=== PATIENT | male | born 1950 | race Caucasian/White ===

== ENCOUNTER 2019-01-17 09:05 | Emergency (ER) | payer MEDICARE, OTHER ==
--- NOTE | 2019-01-17 09:53 | ED ---
Lower Extremity - HPI Summary HPI Summary: Patient is a 68-year-old male who presents emergency department for right foot pain. Patient states he chronically has mild pain noted to his right foot but 3 days ago he twisted his foot walking and has had worsening pain and bruising. Symptoms are mild in severity. Tylenol improves pain. Walking exacerbates pain. Symptoms are mild in severity. - History of Current Complaint Chief Complaint: EDExtremityLower Stated Complaint: RT FOOT INJ PER PT Time Seen by Provider: 01/17/19 09:37 Hx Obtained From: Patient Pain Intensity: 3 - Allergies/Home Medications Allergies/Adverse Reactions: Allergies Allergy/AdvReac Type Severity Reaction Status Date / Time No Known Allergies Allergy Verified 05/23/12 08:39 PMH/Surg Hx/FS Hx/Imm Hx Previously Healthy: Yes Cardiovascular History: Reports: Hx Hypertension Musculoskeletal History: Reports: Hx Scoliosis Neurological History: Reports: Hx Headaches - Surgical History Surgery Procedure, Year, and Place: Left inguinal hernia repair with mesh 2015 Infectious Disease History: No Infectious Disease History: Denies: Traveled Outside the [place] in Last 30 Days - Family History Known Family History: Positive: Cardiac Disease - father of [place], Other - dementia, Non-Contributory - Social History Occupation: Employed Part-time Lives: With Family Alcohol Use: Rare Substance Use Type: Reports: None Smoking Status (MU): Never Smoked Tobacco Have You Smoked in the Last Year: No Review of Systems Constitutional: Negative Negative: Fever, Chills Positive: Other - right foot pain Positive: Bruising Neurological: Negative Negative: Weakness, Paresthesia, Numbness All Other Systems Reviewed And Are Negative: Yes Physical Exam Triage Information Reviewed: Yes Vital Signs On Initial Exam: Initial Vitals Temp Pulse Resp BP Pulse Ox 97.8 F 72 18 172/113 99 01/17/19 09:10 01/17/19 09:10 01/17/19 09:10 01/17/19 09:10 01/17/19 09:10 Vital Signs Reviewed: Yes Appearance: Positive: Well-Appearing - Pt. sitting on bed in NAD. Skin: Positive: Warm, Dry Head/Face: Positive: Normal Head/Face Inspection Eyes: Positive: Normal, EOMI Neck: Positive: Supple Musculoskeletal: Positive: Other - Pain and ecchymosis noted to the latearl aspect of right foot over 5th metatarsal. Good pulse. No breaks in the skin. No proximal pain. Neurological: Positive: Normal, CN Intact II-III Psychiatric: Positive: Affect/Mood Appropriate Procedures - Splinting Right Lower Extremity Location: applied by myself Hand-Made Type: orthoglass Splint: posterior walking Pre-Proc Neuro Vasc Exam: normal Post-Proc Neuro Vasc Exam: normal Diagnostics - Vital Signs Vital Signs Temp Pulse Resp BP Pulse Ox 01/17/19 09:10 97.8 F 72 18 172/113 99 - Laboratory Lab Statement: Any lab studies that have been ordered have been reviewed, and results considered in the medical decision making process. Lower Extremity Course/Dx - Course Course Of Treatment: Reading per radiology: IMPRESSION: 1. Suspicion for nondisplaced fracture fragment along the lateral cuboid (oblique view). 2. 13 mm well-corticated ossicle lateral to the talocuboid joint space is likely. self pay representative of old trauma. 3. 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 Pt. splinted and crutched. Will f.u with ortho. To ice and elevate. Tylenol for pain as directed. Pt. understands and agrees with plan. - Diagnoses Differential Diagnosis/HQI/PQRI: Positive: Fracture (Closed), Sprain, Strain Provider Diagnoses: Cuboid fracture Discharge - Sign-Out/Discharge Documenting (check all that apply): Patient Departure Patient Received Moderate/Deep Sedation with Procedure: No - Discharge Plan Condition: Good Disposition: HOME Patient Education Materials: Foot Fracture in Adults (ED) Referrals: Aram Ahmadi MD [Medical Doctor] - Hafsa Mckee MD [Primary Care Provider] - Additional Instructions: Call Dr. Ahmadi's office today to schedule an appointment as soon as possible Keep splint in place and use crutches Ice and elevate Tylenol or Motrin for pain as directed Return to ER if symptoms change or worsen - Billing Disposition and Condition Condition: GOOD Disposition: Home
[2019-01-17 11:31] VITALS: BP 172/115
== END 2019-01-17 11:30 | disposition home or self-care (01) ==
LOC: ED 09:05
DX: S92.214A Nondisplaced fracture of cuboid bone of right foot, initial encounter for closed fracture (principal); X58.XXXA Exposure to other specified factors, initial encounter; Y92.9 Unspecified place or not applicable; I10 Essential (primary) hypertension
CPT/HCPCS: 99281